=== PATIENT | male | born 1955 | race Caucasian/White ===

== ENCOUNTER 2019-06-03 07:54 | Day surgery (SDC) | payer MEDICAID ==
[2019-06-03] MEDS ORDERED: LIDOCAINE 2% MDV (20MG/ML) 20ML VIAL IV ONE (07:55)
[2019-06-03] MEDS ORDERED: PROPOFOL 10 MG/ML VIAL IV ONE (07:55)
--- NOTE | 2019-06-04 11:20 | Operative Note ---
OPERATION: COLONOSCOPY with cold forceps polypectomy. PREOPERATIVE DIAGNOSIS: Personal history of multiple colon polyps and questionable diverticulitis. POSTOPERATIVE DIAGNOSES: 1. A few scattered diverticula in the left colon and ascending colon. 2. Normal-appearing sigmoid anastomosis. 3. Transverse colon polyp. PROCEDURE: After informed consent was obtained from the patient, he was placed in the left lateral decubitus position in the endoscopy suite, sedated and monitored by the department of anesthesia. Digital rectal examination was unremarkable. A well-lubricated [id number] colonoscope was inserted into the rectum and advanced to the cecum. Preparation quality was good. The cecum, cecal bulb, ileocecal valve, appendiceal orifice, and ascending colon were unremarkable. The transverse colon revealed a diminutive polyp. The ascending colon was again inspected. There were a few diverticula noted. The transverse colon and descending colon were otherwise unremarkable other than a few diverticula seen in the descending colon. In an area of the sigmoid colon, there appeared to be a colocolonic anastomosis which appeared unremarkable. The rectum was unremarkable in forward and J-turn views. The endoscope was straightened, the rectal ampulla deflated, and the endoscope was removed. RECOMMENDATIONS: I would suggest the patient follow a high-fiber diet. He should undergo repeat exam in 5 years. As always, thank you for allowing me to participate in the healthcare of your patients. PHIL
== END 2019-06-03 10:25 | disposition home or self-care (01) ==
LOC: HOP 07:54
PROVIDERS: ATTEND Internal Medicine Gastroenterology
DX: Z09 Encounter for follow-up examination after completed treatment for conditions other than malignant neoplasm (principal); Z86.010 Personal history of colon polyps; D12.3 Benign neoplasm of transverse colon; K63.89 Other specified diseases of intestine; K57.30 Diverticulosis of large intestine without perforation or abscess without bleeding; Z87.19 Personal history of other diseases of the digestive system; I10 Essential (primary) hypertension; E78.00 Pure hypercholesterolemia, unspecified; M19.90 Unspecified osteoarthritis, unspecified site